=== PATIENT | male | born 2000 | race Two or more races ===

== ENCOUNTER 2020-07-19 10:13 | Emergency (ER) | payer SELFPAY ==
[~2020-07-19] VITALS: Ht 180.3 cm; Wt 69.0 kg
[2020-07-19 10:18] VITALS: BP 143/59
== END 2020-07-19 11:32 | disposition home or self-care (01) ==
LOC: ED 11:15
DX: S90.31XA Contusion of right foot, initial encounter (principal); M79.89 Other specified soft tissue disorders; X58.XXXA Exposure to other specified factors, initial encounter; Y93.89 Activity, other specified; Y92.89 Other specified places as the place of occurrence of the external cause; Y99.8 Other external cause status
CPT/HCPCS: 99283